=== PATIENT | female | born 1995 | race African-American/Black ===

== ENCOUNTER 2023-03-22 11:49 | Emergency (ER) | payer OTHER ==
[~2023-03-22] VITALS: Ht 157.5 cm; Wt 49.9 kg
--- NOTE | 2023-03-22 12:00 | NUR ---
c/o chest sharp pain x 2 months and getting worst today 10/10 ps smoke weed everyday, radiating to bilaterl shoulder
--- NOTE | 2023-03-22 12:05 | NUR ---
IV INSERTED, AT RAC 20 G, BLD DRAWN, SENT TO LAB
--- NOTE | 2023-03-22 12:06 | NUR ---
Liseth souza in [facility] - 03/22/23 at 1209 by LYNDA MERLE DONE BY EMT
--- NOTE | 2023-03-22 12:10 | NUR ---
URGE PT TO PROVIDE URINE, CUP AT BEDSIDE, WILL INFORM ME IF SHE NEEDS TO GO
--- NOTE | 2023-03-22 12:15 | NUR ---
EMT AT BEDSIDE FOR EKG
[2023-03-22 12:21] LABS: BASOPHILS % (AUTO) 0.4 % (0.0-2.0); EOSINOPHILS % (AUTO) 1.8 % (0.0-6.0); HEMATOCRIT 37 % (33-45); HEMOGLOBIN 11.8 g/dL (11.5-14.8); LYMPHOCYTES % (AUTO) 26.4 % (20.0-44.0); MEAN CORPUSCULAR HGB CONC 32 g/dl (31.0-36.0); MEAN CORPUSCULAR VOLUME 83 fL (82-100); MONOCYTES # (AUTO) 0.5 K/uL (0.1-1.30); MONOCYTES % (AUTO) 7.1 % (2.0-12.0); NEUTROPHILS # (AUTO) 4.9 K/uL (1.8-8.9); NEUTROPHILS % (AUTO) 64.3 % (43.0-81.0); PLATELET COUNT (AUTO) 299 K/uL (150-450); RED BLOOD CELL COUNT(AUTO) 4.48 MIL/uL (4.0-5.2); WHITE BLOOD COUNT (AUTO) 7.6 K/uL (4.3-11.0)
--- NOTE | 2023-03-22 12:27 | NUR ---
URINE COLLECTED, SENT TO LAB
[2023-03-22 12:36] LABS: CALCIUM, SERUM 9.3 mg/dL (8.5-10.1); CARBON DIOXIDE 23 mmol/L (21-32); CHLORIDE 105 mmol/L (98-107); CREATININE 0.8 mg/dL (0.6-1.3); GLUCOSE 96 mg/dL (74-106); POTASSIUM 4.3 mmol/L (3.5-5.1); SODIUM SERUM 138 mmol/L (136-145); UREA NITROGEN, BLOOD 8 mg/dL (7-18)
--- NOTE | 2023-03-22 14:25 | NUR ---
[facility]
[2023-03-22] MEDS ORDERED: IBUP-1955 PO (15:27)
[2023-03-22] MEDS ORDERED: KETOROLAC TROMETHAMINE INJ 30 MG/ML VIAL IV ONE (15:30)
[2023-03-22] MEDS ORDERED: KETOROLAC TROMETHAMINE 15 MG/ML VIAL ONE (16:11)
--- NOTE | 2023-03-22 16:12 | NUR ---
Patient discharged to home in stable condition. Written and verbal after care instructions given. Patient verbalizes understanding of instruction.
--- NOTE | 2023-03-22 16:12 | NUR ---
IV removed. Catheter intact and site benign. Pressure and 4x4 applied to site. No bleeding noted.
[2023-03-22 16:13] VITALS: BP 112/76
== END 2023-03-22 16:13 | disposition home or self-care (01) ==
LOC: ER 11:54
DX: R07.89 Other chest pain (principal); F41.9 Anxiety disorder, unspecified
CPT/HCPCS: 99285; 96374; 71045; 93005; 85025; 80048; 85378; 84703; 36415; 84484; J1885